=== PATIENT | female | born 1960 | race Caucasian/White ===

== ENCOUNTER 2017-05-28 07:27 | Day surgery (SDC) | payer BC ==
[2017-05-28] MEDS ORDERED: Propofol 200 MG/20 ML SDV ONE (07:32)
[2017-05-28] MEDS ORDERED: Midazolam 1 MG/ML 2 ML SDV ONE (07:33)
[2017-05-28] MEDS ORDERED: fentaNYL 100 MCG/2 ML SDV ONE (07:33)
[2017-05-28] MEDS ORDERED: Dextrose 5%-Lactated Ringers 1,000 ML IV SCH (08:00)
[2017-05-28] MEDS ORDERED: Glycopyrrolate 0.2 MG/ML 2 ML SYRINGE IVPUSH ONE (08:30)
[2017-05-28] MEDS ORDERED: Ondansetron 4 MG/2 ML SDV ONE (09:09)
[2017-05-28] MEDS ORDERED: Ondansetron 4 MG/2 ML SDV IVPUSH ONE (09:38)
[2017-05-28 10:35] VITALS: BP 140/85
--- NOTE | 2017-06-04 13:21 | OR ---
DATE OF PROCEDURE: 05/28/2017 PREOPERATIVE DIAGNOSIS: 1. Probable reflux esophagitis. POSTOPERATIVE DIAGNOSES: 1. Probable reflux esophagitis with bilious material within the esophagus during the onset of the procedure. 2. Minimal antral gastritis. OPERATIVE PROCEDURE: Esophagogastroduodenoscopy with: 1. Biopsies of esophagogastric junction for histologic evaluation. 2. Biopsies of antrum for CLOtest. ANESTHESIA: IV sedation. INDICATIONS FOR PROCEDURE: A 57-year-old female presenting with quite severe reflux esophagitis and she is now been having to sleep while in a sitting position as when she lies down at any point she has things come up into the throat. She gets woken up after sometimes having likely aspirated some of the esophageal contents. She presently is on full dose omeprazole. The reflux esophagitis has been clinically present for several years, but now has become quite worse. She does not complain of any dysphagia per se, so that would appear unlikely dealing with any esophageal motility disorder. The plan is to proceed with an upper GI endoscopy with biopsies as indicated. Potential risks including bleeding and perforation were discussed, and the patient wishes to proceed. DETAILS OF THE PROCEDURE: The patient was taken to the operating room and placed in the left lateral decubitus position. IV sedation was administered, upper GI endoscope was passed orally through the length of the esophagus and the stomach with retroflexion view of the fundus; thereafter, through the pyloric channel into the junction of the third and fourth portions of the duodenum. Findings included some retained bilious material within the esophagus upon initial insertion of the scope. This was associated lower down with large hiatal hernia measuring around 5-6 cm, which had marked inflammation circumferentially at the EG junction. There was no significant upward extension of the gastroesophageal junction and mucosal line per se. There was also a fair bit of retained bile within the portion of the stomach containing hiatal hernia as well as more distal stomach. There was some mild gastritis in the antrum. Otherwise, the pyloric channel with visualized portions of the duodenum were unremarkable. The scope was then pulled back and a biopsy obtained from the antrum and sent for CLOtest for H. pylori. Following this, multiple biopsies obtained from the esophagogastric junction and sent for histologic evaluation. No bleeding from the biopsy sites was seen and the procedure then concluded. Given the patient's severe symptoms, she would like to proceed with an antireflux procedure. This appeared to be clinically indicated, and I do not think there is any question about the diagnosis at this point and again it would be very unlikely she has esophageal motility disorder per se, but more of a complications related to a large hiatal hernia. The distal fundoplication will be scheduled for this coming Wednesday. René Garcia MD /[id number]
== END 2017-05-28 11:13 | disposition home or self-care (01) ==
LOC: JP.SDS 07:27
PROVIDERS: ATTEND Surgery
DX: K21.0 Gastro-esophageal reflux disease with esophagitis (principal); K29.50 Unspecified chronic gastritis without bleeding; K44.9 Diaphragmatic hernia without obstruction or gangrene
CPT/HCPCS: 36415; 43239; 80053; 83735; 84100; 85027; 87081; 88305; J2250; J2405; J2704; J3010; J7042

== ENCOUNTER 2017-05-31 07:57 | Inpatient (IN) | payer BC ==
[~2017-05-31 07:57] MED LIST: Dexamethasone 4 MG/ML SDV ONE; Neostigmine Methylsulfate 1 MG/ML 5 ML Syringe ONE; Ondansetron 4 MG/2 ML SDV ONE; Propofol 200 MG/20 ML SDV ONE; Rocuronium 50 MG/5 ML Vial ONE; Succinylcholine/Normal Saline 200 MG/10 ML Syringe ONE; fentaNYL 250 MCG/5 ML SDV ONE
[2017-05-31] MEDS ORDERED: Dextrose 5%-Lactated Ringers 1,000 ML IV SCH (08:30)
[2017-05-31] MEDS ORDERED: Celecoxib 200 MG Cap PO ONE (08:30)
[2017-05-31] MEDS ORDERED: Gabapentin 300 MG Cap PO ONE (08:30)
[2017-05-31] MEDS ORDERED: Acetaminophen 500 MG Tab PO ONE (08:30)
[2017-05-31] MEDS ORDERED: ceFAZolin 2 GM in Premix Bag 1 BAG IV ONE (08:30)
[2017-05-31] MEDS ORDERED: Scopolamine 1.5 MG Transdermal Patch TOP SCH (08:30)
[2017-05-31] MEDS ORDERED: Ropivacaine 45 ML, Dexamethasone 8 MG, EPINEPHrine 0.4 MG, Sodium Chloride 0.9% 32.6 ML NERVRT SCH ×4 (09:00)
[2017-05-31] MEDS ORDERED: Lidocaine 2% 100 MG/5 ML Syringe IVPUSH ONE ×2 (09:00)
[2017-05-31] MEDS ORDERED: Ketamine 500 MG/5 ML MDV IV SCH (09:00)
[2017-05-31] MEDS ORDERED: Meperidine 300 MG/30 ML PCA Vial IV PRN (10:37)
[2017-05-31] MEDS ORDERED: Naloxone 0.4 MG/ML SDV IV PRN (10:42)
[2017-05-31] MEDS ORDERED: Lactated Ringers 1,000 ML ONE (11:13)
[2017-05-31] MEDS ORDERED: fentaNYL 250 MCG/5 ML SDV ONE (11:13)
[2017-05-31] MEDS ORDERED: Labetalol 20 MG/4 ML Syringe ONE (11:35)
[2017-05-31] MEDS ORDERED: hydrOXYzine HCl 100 MG/2 ML SDV IM ONE (12:19)
[2017-05-31] MEDS ORDERED: fentaNYL 100 MCG/2 ML SDV IVPUSH ONE (12:19)
[2017-05-31] MEDS ORDERED: Ondansetron 4 MG/2 ML SDV IVPUSH PRN (13:25)
[2017-05-31] MEDS: Lidocaine 0.4%/D5W 2 GM/500 ML BAG IV SCH (13:42)
[2017-05-31] MEDS: VERIFY SCOPOLAMINE PATCH TOP SCH (13:44)
[2017-05-31] MEDS: Acetaminophen 500 MG Tab PO SCH ×2 (15:21→21:09)
[2017-05-31] MEDS: Metoclopramide 10 MG/2 ML SDV IVPUSH SCH ×2 (15:22→21:09)
[2017-05-31] MEDS ORDERED: Pantoprazole 40 MG Vial IV SCH (16:00)
[2017-05-31] MEDS: Dextrose 5%-Lactated Ringers 1,000 ML IV SCH ×2 (16:10→21:15)
[2017-05-31] MEDS: ceFAZolin 2 GM in Sodium Chloride 0.9% 50 ML IV SCH (18:40)
[2017-05-31] MEDS ORDERED: HYDROmorphone 1 MG/ML Syringe IVPUSH PRN (19:27)
[2017-05-31] MEDS ORDERED: Morphine 2 MG/ML Syringe IVPUSH PRN (19:51)
[2017-05-31] MEDS: ClonazePAM 1 MG Tab PO SCH (21:13)
[2017-06-01] MEDS: ceFAZolin 2 GM in Sodium Chloride 0.9% 50 ML IV SCH ×2 (02:56→09:38)
[2017-06-01] MEDS: Dextrose 5%-Lactated Ringers 1,000 ML IV SCH (02:56)
[2017-06-01] MEDS: Lidocaine 0.4%/D5W 2 GM/500 ML BAG IV SCH (02:58)
[2017-06-01] MEDS: Metoclopramide 10 MG/2 ML SDV IVPUSH SCH ×4 (03:24→21:36)
[2017-06-01] MEDS: Acetaminophen 500 MG Tab PO SCH ×4 (06:07→21:36)
[2017-06-01] MEDS ORDERED: Dextrose 5%-Lactated Ringers 1,000 ML IV SCH (07:45)
[2017-06-01] MEDS: DULoxetine 30 MG Cap PO SCH (08:49)
[2017-06-01] MEDS: Celecoxib 200 MG Cap PO SCH (08:49)
[2017-06-01] MEDS: VERIFY SCOPOLAMINE PATCH TOP SCH (09:39)
--- NOTE | 2017-06-01 12:10 | PCM.SURGPN ---
- General Info Date of Service: 06/01/17 Date of Surgery/Procedure: 05/31/17 POD#: 1 Post-Op Diagnosis: Stable. S/P Wale Fundoplication Admission Diagnosis/Problem: Gastroesophageal reflux disease Functional Status: Reports: Pain Controlled, Tolerating Diet, Ambulating Pain Score: 2 - Review of Systems General: Reports: No Symptoms HEENT: Reports: No Symptoms Pulmonary: Reports: No Symptoms Cardiovascular: Reports: No Symptoms Gastrointestinal: Reports: Abdominal Pain Genitourinary: Reports: Retention Musculoskeletal: Reports: Shoulder Pain Skin: Reports: No Symptoms Neurological: Reports: No Symptoms Psychiatric: Reports: No Symptoms - Patient Data Vitals - Most Recent: Last Vital Signs Temp 37.1 C 06/01/17 11:31 Pulse 81 06/01/17 11:31 Resp 16 06/01/17 11:31 BP 120/72 06/01/17 11:31 Pulse Ox 96 06/01/17 11:31 Weight - Most Recent: 88.456 kg I&O - Last 24 Hours: Intake & Output 05/31/17 06/01/17 06/01/17 22:59 06:59 14:59 Intake Total 1302 1980 730 Output Total 2450 1475 Balance 1302 -336 -046 Med Orders - Current: Current Medications Acetaminophen (Tylenol Extra Strength) 1,000 mg PO Q6HR [facility] Last Admin: 06/01/17 09:38 Dose: 1,000 mg Celecoxib (Celebrex) 200 mg PO DAILY@0800 [facility] Last Admin: 06/01/17 08:49 Dose: 200 mg Clonazepam (Klonopin) 1 mg PO BEDTIME [facility] Last Admin: 05/31/17 21:13 Dose: 1 mg Duloxetine HCl (Cymbalta) 60 mg PO DAILY [facility] Last Admin: 06/01/17 08:49 Dose: 60 mg Eszopiclone (Lunesta) 1 mg PO BEDTIME PRN PRN Reason: INSOMNIA Dextrose/Lactated Ringer's (Dextrose 5%-Lactated Ringers) 1,000 mls @ 100 mls/ hr IV ASDIRECTED [facility] Last Admin: 06/01/17 08:50 Dose: 100 mls/hr Meperidine HCl (Demerol Banking Services Clerk 300 Mg In 30 Ml) 0 mg IV ASDIRECTED PRN; Protocol PRN Reason: Pain Metoclopramide HCl (Reglan) 10 mg IVPUSH Q6HR [facility] Last Admin: 06/01/17 09:38 Dose: 10 mg Morphine Sulfate (Morphine) 1 mg IVPUSH Q1H PRN PRN Reason: Pain Last Admin: 05/31/17 20:23 Dose: 1 mg Naloxone HCl (Narcan) 0.1 mg IV ASDIRECTED PRN PRN Reason: RESP DISTRESS Verify Scopolamine (Patch) 0 each TOP DAILY [facility] Last Admin: 06/01/17 09:39 Dose: Not Given Ondansetron HCl (Zofran) 4 mg IVPUSH Q4H PRN PRN Reason: Nausea Oxycodone HCl (Oxycodone) 5 - 10 mg PO Q4H PRN PRN Reason: PAIN Pantoprazole Sodium (Protonix) 40 mg PO Q24H [facility] Scopolamine (Transderm-Scop) 1.5 mg TOP Q72H [facility] Last Admin: 05/31/17 08:24 Dose: 1.5 mg Discontinued Medications Acetaminophen (Tylenol Extra Strength) 1,000 mg PO ONETIME ONE Stop: 05/31/17 08:31 Last Admin: 05/31/17 08:23 Dose: 1,000 mg Celecoxib (Celebrex) 200 mg PO ONETIME ONE Stop: 05/31/17 08:31 Last Admin: 05/31/17 08:22 Dose: 200 mg Ropivacaine 45 ml/Dexamethasone 8 mg/Epinephrine HCl 0.4 mg/ Sodium Chloride 32.6 ml 0 ml NERVRT ASDIRECTED [facility] Last Admin: 05/31/17 11:08 Dose: 80 syringe Dexamethasone (Dexamethasone) Confirm Administered Dose 4 mg .ROUTE .STK-MED ONE Stop: 05/31/17 07:49 Fentanyl (Sublimaze) Confirm Administered Dose 250 mcg .ROUTE .STK-MED ONE Stop: 05/31/17 07:48 Fentanyl (Sublimaze) Confirm Administered Dose 250 mcg .ROUTE .STK-MED ONE Stop: 05/31/17 11:14 Fentanyl (Sublimaze) 100 mcg IVPUSH ONETIME ONE Stop: 05/31/17 12:20 Last Admin: 05/31/17 12:26 Dose: 100 mcg Gabapentin (Neurontin) 300 mg PO ONETIME ONE Stop: 05/31/17 08:31 Last Admin: 05/31/17 08:22 Dose: 300 mg Glycopyrrolate () Confirm Administered Dose 1 mg .ROUTE .[facility] ONE Stop: 05/31/17 07:49 Hydromorphone HCl (Dilaudid) 1 mg IVPUSH Q1H PRN PRN Reason: Pain Hydroxyzine HCl (Vistaril) 75 mg IM ONETIME ONE Stop: 05/31/17 12:20 Last Admin: 05/31/17 12:24 Dose: 75 mg Cefazolin Sodium 2 gm/ Premix 20 mls @ 600 mls/hr IV ONETIME ONE Stop: 05/31/17 08:31 Last Admin: 05/31/17 11:07 Dose: 600 mls/hr Dextrose/Lactated Ringer's (Dextrose 5%-Lactated Ringers) 1,000 mls @ 100 mls/ hr IV ASDIRECTED [facility] Last Admin: 05/31/17 09:25 Dose: 100 mls/hr Lidocaine HCl/Dextrose (Lidocaine 2 Gm/D5w 500 Ml) 2 gm in 500 mls @ 30 mls/hr IV .[id number] [facility] PRN Reason: 2 MG/MIN Stop: 06/01/17 12:00 Last Admin: 06/01/17 02:58 Dose: 2 mg/min, 30 mls/hr Ketamine HCl 100 mg/ Sodium (Chloride) 100 mls @ 18 mls/hr IV ASDIRECTED [facility] PRN Reason: 5 MCG/KG/MIN Lactated Ringer's (Ringers, Lactated) Confirm Administered Dose 1,000 mls @ as directed .ROUTE .[facility] ONE Stop: 05/31/17 11:14 Dextrose/Lactated Ringer's (Dextrose 5%-Lactated Ringers) 1,000 mls @ 175 mls/ hr IV ASDIRECTED [facility] Last Admin: 06/01/17 02:56 Dose: 175 mls/hr Cefazolin Sodium 2 gm/ Sodium (Chloride) 50 mls @ 100 mls/hr IV Q8H [facility] Stop: 06/01/17 10:29 Last Admin: 06/01/17 09:38 Dose: 100 mls/hr Ketamine HCl (Ketalar) 30 mg IV ASDIRECTED [facility] Labetalol HCl (Normodyne) Confirm Administered Dose 20 mg .ROUTE .[facility] ONE Stop: 05/31/17 11:36 Lidocaine HCl (Xylocaine 2%) 100 mg IVPUSH ONETIME ONE Stop: 05/31/17 09:01 Last Admin: 05/31/17 13:37 Dose: Not Given Neostigmine Methylsulfate (Neostigmine) Confirm Administered Dose 5 mg .ROUTE .STK-MED ONE Stop: 05/31/17 07:49 Ondansetron HCl (Zofran) Confirm Administered Dose 4 mg .ROUTE .STK-MED ONE Stop: 05/31/17 07:49 Pantoprazole Sodium (Protonix Iv) 40 mg IV Q24H [facility] Last Admin: 05/31/17 15:21 Dose: 40 mg Propofol (Diprivan 20 Ml) Confirm Administered Dose 200 mg .ROUTE .STK-MED ONE Stop: 05/31/17 07:49 Rocuronium [place] (Zemuron) Confirm Administered Dose 50 mg .ROUTE .STK-MED ONE Stop: 05/31/17 07:49 Succinylcholine Chloride (Succinylcholine In Ns Pf) Confirm Administered Dose 200 mg .ROUTE .STK-MED ONE Stop: 05/31/17 07:49 - Exam Wound/Incisions: Healing Well, Dressing Dry and Intact, No Drainage General: Alert, Oriented, Cooperative, No Acute Distress HEENT: Pupils Equal, Pupils Reactive, EOMI, Mucous Membr. Moist/[place] Neck: Supple Lungs: Clear to Auscultation, Normal Respiratory Effort Cardiovascular: Regular Rate, Regular Rhythm GI/Abdominal Exam: Normal Bowel Sounds, Soft, Non-Tender, No Organomegaly, No Distention, No Abnormal Bruit, No Mass, Pelvis Stable, Tender Extremities: Normal Inspection, Normal Range of Motion, Non-Tender, No Pedal Edema, Normal Capillary Refill Skin: Warm, Dry, Intact Neurological: No New Focal Deficit Psy/Mental Status: Alert, Normal Affect, Normal Mood - Problem List Review Problem List Initiated/Reviewed/Updated: Yes - My Orders Last 24 Hours: Active Orders 24 hr Category Date Time Status Patient Status [ADT] Routine ADT 05/31/17 12:15 Active Ambulate [RC] QID Care 05/31/17 13:20 Active Communication Order [RC] ASDIRECTED Care 05/31/17 22:27 Active Communication Order [RC] ASDIRECTED Care 06/01/17 12:00 Active DC Busch Catheter [Urinary Catheter Removal] [RC] Care 06/02/17 05:00 Inactive ASDIRECTED Insert Busch Catheter [Insert Urinary Catheter] [OM.PC] Care 06/01/17 01:00 Ordered Q24H May Shower [RC] ASDIRECTED Care 06/01/17 07:07 Active Overnight Pulse Oximetry [RC] Click to Edit Care 05/31/17 13:21 Inactive Up to Chair [RC] QID Care 05/31/17 13:19 Active Verify Patient Consent Obtain [RC] ASDIRECTED Care 06/01/17 07:40 Inactive Vital Signs [RC] Q4H Care 05/31/17 19:00 Active Consult to Vp Platforms [CONS] Routine Cons 06/01/17 07:10 Active Full Liquid Diet [DIET] Diet 06/01/17 Lunch Ordered Acetaminophen [Tylenol Extra Strength] Med 05/31/17 16:00 Active 1,000 mg PO Q6HR Celecoxib [CeleBREX] Med 06/01/17 08:00 Active 200 mg PO DAILY@0800 ClonazePAM [KlonoPIN] Med 05/31/17 21:00 Active 1 mg PO BEDTIME DULoxetine [Cymbalta] Med 06/01/17 09:00 Active 60 mg PO DAILY Dextrose 5%-Lactated Ringers 1,000 ml Med 06/01/17 07:45 Active IV ASDIRECTED Eszopiclone [Lunesta] Med 05/31/17 13:27 Active 1 mg PO BEDTIME PRN Metoclopramide [Reglan] Med 05/31/17 16:00 Active 10 mg IVPUSH Q6HR Morphine Med 05/31/17 19:51 Active 1 mg IVPUSH Q1H PRN Non-Formulary Medication [NF Drug] Med 05/31/17 14:00 Active 0 each TOP DAILY Ondansetron [Zofran] Med 05/31/17 13:25 Active 4 mg IVPUSH Q4H PRN Pantoprazole [ProTONIX] Med 06/01/17 16:30 Active 40 mg PO Q24H oxyCODONE Med 06/01/17 07:36 Active 5 - 10 mg PO Q4H PRN Abdominal Binder [OM.PC] Routine Oth 05/31/17 13:23 Ordered Remove Dressing [OM.PC] Routine Oth 06/01/17 07:07 Ordered Sequential Compression Device [OM.PC] Routine Oth 05/31/17 13:20 Ordered Medication Orders Acetaminophen (Tylenol Extra Strength) 1,000 mg PO Q6HR [facility] Last Admin: 06/01/17 09:38 Dose: 1,000 mg Admin: 06/01/17 06:07 Dose: Not Given Admin: 05/31/17 21:09 Dose: 1,000 mg Admin: 05/31/17 15:21 Dose: 1,000 mg Celecoxib (Celebrex) 200 mg PO DAILY@0800 [facility] Last Admin: 06/01/17 08:49 Dose: 200 mg Clonazepam (Klonopin) 1 mg PO BEDTIME [facility] Last Admin: 05/31/17 21:13 Dose: 1 mg Duloxetine HCl (Cymbalta) 60 mg PO DAILY [facility] Last Admin: 06/01/17 08:49 Dose: 60 mg Eszopiclone (Lunesta) 1 mg PO BEDTIME PRN PRN Reason: INSOMNIA Dextrose/Lactated Ringer's (Dextrose 5%-Lactated Ringers) 1,000 mls @ 100 mls/ hr IV ASDIRECTED [facility] Last Admin: 06/01/17 08:50 Dose: 100 mls/hr Meperidine HCl (Demerol Banking Services Clerk 300 Mg In 30 Ml) 0 mg IV ASDIRECTED PRN; Protocol PRN Reason: Pain Metoclopramide HCl (Reglan) 10 mg IVPUSH Q6HR [facility] Last Admin: 06/01/17 09:38 Dose: 10 mg Admin: 06/01/17 03:24 Dose: 10 mg Admin: 05/31/17 21:09 Dose: 10 mg Admin: 05/31/17 15:22 Dose: 10 mg Morphine Sulfate (Morphine) 1 mg IVPUSH Q1H PRN PRN Reason: Pain Last Admin: 05/31/17 20:23 Dose: 1 mg Naloxone HCl (Narcan) 0.1 mg IV ASDIRECTED PRN PRN Reason: RESP DISTRESS Verify Scopolamine (Patch) 0 each TOP DAILY [facility] Last Admin: 06/01/17 09:39 Dose: Not Given Admin: 05/31/17 13:44 Dose: Not Given Ondansetron HCl (Zofran) 4 mg IVPUSH Q4H PRN PRN Reason: Nausea Oxycodone HCl (Oxycodone) 5 - 10 mg PO Q4H PRN PRN Reason: PAIN Pantoprazole Sodium (Protonix) 40 mg PO Q24H [facility] Scopolamine (Transderm-Scop) 1.5 mg TOP Q72H [facility] Last Admin: 05/31/17 08:24 Dose: 1.5 mg - Assessment Assessment (Free Text/Narrative):: Ms. Shruti Winkler is a 57 year old female who is 1 day S/P Wale Fundoplication. Per nursing, the patient did desat into the high 80's last night and was subsequently put on 1 liter of oxygen per nasal canula. However, her lung and cardiac exam were normal and the patient sats well while up and moving around, this is most likely her baseline. She did have some complaints of pain between her shoulder blades. This is most likely related to CO2 in the abdomen pushing on the diaphragm. This was explained to the patient in detail. She does have some complaints of abdominal pain. She received 1 dose morphine last night with great relief of her pain. She slept well. Her incision sites are healing well. Her urinary retention was most likely related to post operative retention. Busch was placed and then removed. - Plan Plan (Free Text/Narrative):: # Abdominal pain- On exam, her incision sites look well. Will transition patient to oral pain medications. - Resume full liquid diet as tolerated - Oxycodone PRN - Tylenol PRN - Advised to continue to walk around - Continue to use abdominal binder - May shower # Urinary retention- Most likely related to surgery yesterday. Busch was placed. Busch was removed because she was having pressure. Retention has most likely resolved at this time. - Will continue to monitor - Bladder scan Q6hr if patient does not urine on her own # Shoulder pain- There are no abnormalities on exam. There is no point tenderness, bony tenderness and there are no sites of erythema or bogginess. - Will continue to monitor, if worse will reassess # Desat - will continue to monitor with continued O2 monitoring - If desats again tonight, try 1/2 liter O2 per NC - If sats get worse, will reassess in AM - No fever - Q4hr vitals - RT incentive spirometry # Diet- Resume full liquid diet as tolerated - Dietary consulted, appreciated recs # ENERGY Protocol - D/c Lidocaine Dispo: Stable. Status post Wale IVF: D/C Code status: Full VTE prophylaxis: SCD's in place when not walking around Discharge: The patient will most likely be discharged tomorrow.
[2017-06-01] MEDS: oxyCODONE 5 MG Tab PO PRN ×2 (16:30→21:39)
[2017-06-01] MEDS ORDERED: Pantoprazole 40 MG Tab.CR PO SCH (16:30)
[2017-06-01] MEDS: ClonazePAM 1 MG Tab PO SCH ×2 (21:37→21:39)
[2017-06-02] MEDS: Acetaminophen 500 MG Tab PO SCH ×2 (03:55→09:06)
[2017-06-02] MEDS: Metoclopramide 10 MG/2 ML SDV IVPUSH SCH ×2 (03:57→10:39)
[2017-06-02 07:31] VITALS: BP 111/62
[2017-06-02] MEDS: DULoxetine 30 MG Cap PO SCH (09:06)
[2017-06-02] MEDS: Celecoxib 200 MG Cap PO SCH (09:06)
[2017-06-02] MEDS: VERIFY SCOPOLAMINE PATCH TOP SCH (10:15)
--- NOTE | 2017-06-02 13:00 | PCM.SURGPN ---
- General Info Date of Service: 06/02/17 Date of Surgery/Procedure: 05/31/17 Post-Op Diagnosis: Stable. S/p Wale Admission Diagnosis/Problem: Gastroesophageal reflux disease Pain Score: 1 - Review of Systems General: Reports: No Symptoms HEENT: Reports: No Symptoms Pulmonary: Reports: No Symptoms Cardiovascular: Reports: No Symptoms Gastrointestinal: Reports: No Symptoms Genitourinary: Reports: No Symptoms Musculoskeletal: Reports: No Symptoms Skin: Reports: No Symptoms Neurological: Reports: No Symptoms Psychiatric: Reports: No Symptoms - Patient Data Vitals - Most Recent: Last Vital Signs Temp 36.8 C 06/02/17 07:28 Pulse 71 06/02/17 07:28 Resp 16 06/02/17 07:28 BP 111/62 06/02/17 07:28 Pulse Ox 97 06/02/17 07:28 Weight - Most Recent: 88.456 kg I&O - Last 24 Hours: Intake & Output 06/01/17 06/02/17 06/02/17 22:59 06:59 14:59 Intake Total 4071 240 Output Total 1000 1200 1000 Balance 3071 -960 -1000 Med Orders - Current: Current Medications Discontinued Medications Acetaminophen (Tylenol Extra Strength) 1,000 mg PO ONETIME ONE Stop: 05/31/17 08:31 Last Admin: 05/31/17 08:23 Dose: 1,000 mg Acetaminophen (Tylenol Extra Strength) 1,000 mg PO Q6HR [facility] Last Admin: 06/02/17 09:06 Dose: 1,000 mg Celecoxib (Celebrex) 200 mg PO ONETIME ONE Stop: 05/31/17 08:31 Last Admin: 05/31/17 08:22 Dose: 200 mg Celecoxib (Celebrex) 200 mg PO DAILY@0800 [facility] Last Admin: 06/02/17 09:06 Dose: 200 mg Clonazepam (Klonopin) 1 mg PO BEDTIME [facility] Last Admin: 06/01/17 21:39 Dose: 1 mg Ropivacaine 45 ml/Dexamethasone 8 mg/Epinephrine HCl 0.4 mg/ Sodium Chloride 32.6 ml 0 ml NERVRT ASDIRECTED [facility] Last Admin: 05/31/17 11:08 Dose: 80 syringe Dexamethasone (Dexamethasone) Confirm Administered Dose 4 mg .ROUTE .STK-MED ONE Stop: 05/31/17 07:49 Duloxetine HCl (Cymbalta) 60 mg PO DAILY [facility] Last Admin: 06/02/17 09:06 Dose: 60 mg Eszopiclone (Lunesta) 1 mg PO BEDTIME PRN PRN Reason: INSOMNIA Fentanyl (Sublimaze) Confirm Administered Dose 250 mcg .ROUTE .STK-MED ONE Stop: 05/31/17 07:48 Fentanyl (Sublimaze) Confirm Administered Dose 250 mcg .ROUTE .STK-MED ONE Stop: 05/31/17 11:14 Fentanyl (Sublimaze) 100 mcg IVPUSH ONETIME ONE Stop: 05/31/17 12:20 Last Admin: 05/31/17 12:26 Dose: 100 mcg Gabapentin (Neurontin) 300 mg PO ONETIME ONE Stop: 05/31/17 08:31 Last Admin: 05/31/17 08:22 Dose: 300 mg Glycopyrrolate () Confirm Administered Dose 1 mg .ROUTE .STK-MED ONE Stop: 05/31/17 07:49 Hydromorphone HCl (Dilaudid) 1 mg IVPUSH Q1H PRN PRN Reason: Pain Hydroxyzine HCl (Vistaril) 75 mg IM ONETIME ONE Stop: 05/31/17 12:20 Last Admin: 05/31/17 12:24 Dose: 75 mg Cefazolin Sodium 2 gm/ Premix 20 mls @ 600 mls/hr IV ONETIME ONE Stop: 05/31/17 08:31 Last Admin: 05/31/17 11:07 Dose: 600 mls/hr Dextrose/Lactated Ringer's (Dextrose 5%-Lactated Ringers) 1,000 mls @ 100 mls/ hr IV ASDIRECTED [facility] Last Admin: 05/31/17 09:25 Dose: 100 mls/hr Lidocaine HCl/Dextrose (Lidocaine 2 Gm/D5w 500 Ml) 2 gm in 500 mls @ 30 mls/hr IV .[id number] [facility] PRN Reason: 2 MG/MIN Stop: 06/01/17 12:00 Last Admin: 06/01/17 02:58 Dose: 2 mg/min, 30 mls/hr Ketamine HCl 100 mg/ Sodium (Chloride) 100 mls @ 18 mls/hr IV ASDIRECTED [facility] PRN Reason: 5 MCG/KG/MIN Lactated Ringer's (Ringers, Lactated) Confirm Administered Dose 1,000 mls @ as directed .ROUTE .K-MED ONE Stop: 05/31/17 11:14 Dextrose/Lactated Ringer's (Dextrose 5%-Lactated Ringers) 1,000 mls @ 175 mls/ hr IV ASDIRECTED [facility] Last Admin: 06/01/17 02:56 Dose: 175 mls/hr Cefazolin Sodium 2 gm/ Sodium (Chloride) 50 mls @ 100 mls/hr IV Q8H [facility] Stop: 06/01/17 10:29 Last Admin: 06/01/17 09:38 Dose: 100 mls/hr Dextrose/Lactated Ringer's (Dextrose 5%-Lactated Ringers) 1,000 mls @ 100 mls/ hr IV ASDIRECTED [facility] Last Admin: 06/01/17 08:50 Dose: 100 mls/hr Ketamine HCl (Ketalar) 30 mg IV ASDIRECTED [facility] Labetalol HCl (Normodyne) Confirm Administered Dose 20 mg .ROUTE .[facility] ONE Stop: 05/31/17 11:36 Lidocaine HCl (Xylocaine 2%) 100 mg IVPUSH ONETIME ONE Stop: 05/31/17 09:01 Last Admin: 05/31/17 13:37 Dose: Not Given Meperidine HCl (Demerol Social Insurance Specialist 300 Mg In 30 Ml) 0 mg IV ASDIRECTED PRN; Protocol PRN Reason: Pain Metoclopramide HCl (Reglan) 10 mg IVPUSH Q6HR [facility] Last Admin: 06/02/17 10:39 Dose: Not Given Morphine Sulfate (Morphine) 1 mg IVPUSH Q1H PRN PRN Reason: Pain Last Admin: 05/31/17 20:23 Dose: 1 mg Naloxone HCl (Narcan) 0.1 mg IV ASDIRECTED PRN PRN Reason: RESP DISTRESS Neostigmine Methylsulfate (Neostigmine) Confirm Administered Dose 5 mg .ROUTE .[facility] ONE Stop: 05/31/17 07:49 Verify Scopolamine (Patch) 0 each TOP DAILY [facility] Last Admin: 06/02/17 10:15 Dose: Not Given Ondansetron HCl (Zofran) Confirm Administered Dose 4 mg .ROUTE .ST-MED ONE Stop: 05/31/17 07:49 Ondansetron HCl (Zofran) 4 mg IVPUSH Q4H PRN PRN Reason: Nausea Oxycodone HCl (Oxycodone) 5 - 10 mg PO Q4H PRN PRN Reason: PAIN Last Admin: 06/01/17 21:39 Dose: 10 mg Pantoprazole Sodium (Protonix Iv) 40 mg IV Q24H [facility] Last Admin: 05/31/17 15:21 Dose: 40 mg Pantoprazole Sodium (Protonix) 40 mg PO Q24H [facility] Last Admin: 06/01/17 16:27 Dose: 40 mg Propofol (Diprivan 20 Ml) Confirm Administered Dose 200 mg .ROUTE .STK-MED ONE Stop: 05/31/17 07:49 Rocuronium [place] (Zemuron) Confirm Administered Dose 50 mg .ROUTE .STK-MED ONE Stop: 05/31/17 07:49 Scopolamine (Transderm-Scop) 1.5 mg TOP Q72H [facility] Last Admin: 05/31/17 08:24 Dose: 1.5 mg Succinylcholine Chloride (Succinylcholine In Ns Pf) Confirm Administered Dose 200 mg .ROUTE .STK-MED ONE Stop: 05/31/17 07:49 - Exam Wound/Incisions: Healing Well General: Alert HEENT: Pupils Equal Neck: Supple Lungs: Clear to Auscultation, Normal Respiratory Effort Cardiovascular: Regular Rate, Regular Rhythm GI/Abdominal Exam: Normal Bowel Sounds, Soft, Non-Tender, No Organomegaly, No Distention, No Abnormal Bruit, No Mass, Pelvis Stable, Tender Extremities: Normal Inspection, Normal Range of Motion, Non-Tender, No Pedal Edema, Normal Capillary Refill Skin: Warm, Dry, Intact Neurological: No New Focal Deficit Psy/Mental Status: Alert, Normal Affect, Normal Mood - Problem List Review Problem List Initiated/Reviewed/Updated: Yes - My Orders Last 24 Hours: Active Orders 24 hr Category Date Time Status DC Shukla Catheter [Urinary Catheter Removal] [RC] Care 06/02/17 05:00 Inactive ASDIRECTED Ready for Discharge [RC] PER UNIT ROUTINE Care 06/02/17 07:04 Active Convert IV to Saline Lock [OM.PC] Routine Oth 06/01/17 20:07 Ordered Shruti Winkler is a 57 year old female with severe GERD who is S/p Wale fundoplication and POD #2. She is able to tolerate her oral liquid diet well. She is having bowel movements and passing gas. Oral pain medication is controlling her pain. Her surgical sites are healing nicely. She will discharge to home today and was advised to return with any signs of infection (severe erythema of surgical sites and fever) as well as trouble swallowing, increased pain, nausea or vomiting. She shall return with any questions or concerns. F/U is scheduled for 06/16/17. She had no further concerns or questions at this time. - Assessment Assessment (Free Text/Narrative):: # Abdominal pain- On exam, her incision sites look well. She is tolerating oral pain medications and liquids well. She was advised to wait 1 weeks before introducing softer foods. - Resume full liquid diet as tolerated - Oxycodone 5-10 mg Q4hr PRN - Tylenol 1000 mg Q6hr PRN - Celecoxib 200 mg once daily for 14 days - Advised to continue to walk around - Continue to use abdominal binder as long as comfortable - NO lifting over 10 pounds - Keep surgical sites clean and dry - August shower # Urinary retention- Resolved. Patient had an output of 2.2 liters after shukla was removed yesterday (2.7.18) at 11Am. # Shoulder pain- Resolved. Most likely from CO2 in abdomen from laparoscopic procedure # Desat - No events of desats last night. Patient was sating well on room air - No fever - RT incentive spirometry 10 times/hr for 2 weeks while awake # Diet- Resume full liquid diet as tolerated - Full liquid diet for 2 weeks - Can introduce soft food (ex. scrambled eggs) in 1 week Dispo: Stable. Status post Wale IVF: D/C Code status: Full VTE prophylaxis: SCD's in place when not walking around Discharge: Discharge to home today
--- NOTE | 2017-06-02 16:46 | PN ---
DATE OF SERVICE: 06/01/2017 The patient has been afebrile with stable vital signs, status post Wale fundoplication yesterday. Clinically, she is doing well overall. She is having no problems with ice chips and sips of water overnight and will go up to a full liquid diet today. We gave her some dietary instruction. She has not required much in the way of pain medicine, some IV push morphine in addition to the scheduled Tylenol and Celebrex. We will switch over to oxycodone orally today as p.r.n. basis along with continued scheduled Tylenol. She had retained urine overnight, had a Busch catheter inserted, we will discontinue that early tomorrow. René Garcia MD /[id number]
--- NOTE | 2017-06-07 18:34 | OR ---
DATE OF PROCEDURE: 05/31/2017 PREOPERATIVE DIAGNOSIS: Large paraesophageal diaphragmatic hernia with gastroesophageal reflux disease refractory to medical management. POSTOPERATIVE DIAGNOSES: 1. Large paraesophageal diaphragmatic hernia with gastroesophageal reflux disease refractory to medical management. 2. Mediastinal lipoma. OPERATIVE PROCEDURE: 1. Laparoscopic Wale fundoplication with repair of paraesophageal diaphragmatic hernia with mesh (11259). 2. Excision of mediastinal lipoma (44178). ANESTHESIA: General. LICENSED ACUPUNCTURIST: Mona Long PA-C and ELENA Carreno3. INDICATIONS: This is a 57-year-old presenting with escalating severe gastroesophageal reflux disease, unable to lay below 30-degree elevated position without esophageal contents coming up into the throat. Plan is to proceed with a laparoscopic Wale fundoplication with concurrent repair of the diaphragmatic hernia. Potential risks of the procedure including bleeding, infection, injury to underlying viscera, problems with fundoplication such as dysphagia, gas-bloat syndrome, disorders of gastric emptying rate, as well as possibility of cardiopulmonary, septic, or hemorrhagic complications leading to were discussed, and the patient wishes to proceed. DETAILS OF PROCEDURE: The patient was taken to the operating room and placed in a supine position. After general endotracheal anesthesia was induced, she was converted to a lithotomy position and the abdomen prepped and draped. At 15 cm inferior, 5 cm left of xiphoid process, transverse incision was made and the peritoneal cavity entered under direct vision with an Optiview trocar. The peritoneal cavity was inflated to 15 mmHg pressure with CO2. Laparoscope was reinserted with a direct vision of the level of the needle. Bilateral subcostal transversus abdominis plane blocks were placed using the standard solution and following this, 4 additional trocars were placed in the upper mid abdomen. The liver was retracted anteriorly and as expected, the patient had a large diaphragmatic hernia this had a major paraesophageal component with prolapse of portion of the stomach alongside the course of the esophagus along with some omentum up into the diaphragmatic hernia. This was then reduced and the peritoneum on the right of the esophagogastric junction and left anterior to the esophagogastric junction was divided with care taken to avoid injury to the vagus nerves. The esophagus was freed up from the crura on each side and retroesophageal window established. This was encircled with a Mercy drain and the remaining attachments of the distal esophagus were freed up circumferentially, such that roughly 4 to 5 cm length of intraabdominal esophagus at that point achieved. During the course of the dissection, a roughly ping-pong ball sized mediastinal lipoma was encountered. This was dissected free to facilitate that satisfactory paraesophageal histologic evaluation. The posterior crural repair was accomplished with a series of 0 Ethibond sutures reinforced with PTFE pledgets. Because of the size of defect, this was felt best reinforced with absorbable tacking mesh to augment increased scar formation. A piece of ST mesh was then cut such that it would lie behind the esophagus over the crural repair slightly underside along the right and left crura. This was oriented such the Seprafilm side of the mesh faced the esophagus and after placed in intraperitoneal location behind esophagus and fixed there were some retained tacking screws. Following this, the greater omentum was taken down from the greater curvature stomach beginning on the proximal end of that area and then continued up along the short gastric vessels as well as posterior short gastric vessels. This all accomplished with Harmonic scalpel. This allowed for a nicely mobile fundus. The latter was retrieved through the retroesophageal window and the certified anesthesiologist assistant placed guidewire orally through the length of esophagus into the stomach. Over this, a 54-Japanese Savary dilator was positioned. A three- stitch 2 cm fundoplication was accomplished with 0 Ethibond sutures reinforced with PTFE pledgets. Each of the stitches included a bite of the underlying esophagus. Then, the fundoplication was tacked up to the diaphragm with the same stitch fundoplication at each site and the dilator and guidewire were removed. The fundoplication was inspected and found to be satisfactory, floppy. At that point, no further problems were noted. Trocars were removed and peritoneal cavity deflated. The fascia at the 12 mm camera port was closed with 0 Vicryl stitch and the skin at each incision with 4-0 Vicryl skin stitch. Dressing was applied. The patient was taken to the recovery room in satisfactory condition. Physician certified anesthesiologist assistant, Mona Long, played an essential role in assisting in this case, helping to position the patient, retract structures as needed, as well as suturing and cutting sutures when indicated. Her presence improved the patient safety and decreased the operative time. René Garcia MD /[id number]
== END 2017-06-02 12:56 | disposition home or self-care (01) | DRG 220 ==
LOC: JP.SDSSCHI 07:57 → JP.SDS 07:57 → EDSTATUS 09:30 → JP.2SS 12:15
PROVIDERS: ADMIT Surgery; ATTEND Surgery
PROC: 0DV44ZZ Restriction of Esophagogastric Junction, Percutaneous Endoscopic Approach (ICD-10-PCS; principal; 2017-05-31)
PROC: 0BUT4JZ Supplement Diaphragm with Synthetic Substitute, Percutaneous Endoscopic Approach (ICD-10-PCS; 2017-05-31)
PROC: 0WBC4ZX Excision of Mediastinum, Percutaneous Endoscopic Approach, Diagnostic (ICD-10-PCS; 2017-05-31)
PROC: 3E0T3BZ Introduction of Anesthetic Agent into Peripheral Nerves and Plexi, Percutaneous Approach (ICD-10-PCS; 2017-05-31)
DX: K21.9 Gastro-esophageal reflux disease without esophagitis (principal); R33.8 Other retention of urine; K44.9 Diaphragmatic hernia without obstruction or gangrene; D17.4 Benign lipomatous neoplasm of intrathoracic organs
CPT/HCPCS: 51702; 88304; A9270-GY; C1781; C9113; J0171; J0690; J1100; J2001; J2270; J2405; J2704; J2765; J2795; J3010; J3410; J7030; J7042; J7050; J7120